=== PATIENT | female | born 1990 | race Caucasian/White ===

== ENCOUNTER 2017-01-17 09:37 | Emergency (ER) | payer OTHER ==
[~2017-01-17] VITALS: Ht 147.3 cm; Wt 65.9 kg
[2017-01-17 10:05] VITALS: BP 154/99
== END 2017-01-17 11:40 | disposition home or self-care (01) ==
LOC: EMS 09:40
DX: J06.9 Acute upper respiratory infection, unspecified (principal); R03.0 Elevated blood-pressure reading, without diagnosis of hypertension; F17.210 Nicotine dependence, cigarettes, uncomplicated
CPT/HCPCS: 99282